=== PATIENT | male | born 1990 | race Caucasian/White ===

== ENCOUNTER 2022-11-01 18:02 | Emergency (ER) | payer SELFPAY ==
[~2022-11-01] VITALS: Ht 188 cm; Wt 97.5 kg
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
[2022-11-01] MEDS ORDERED: FENTANYL PF 100MCG/2ML AMPUL ONE (18:26)
[2022-11-01] MEDS ORDERED: KETOROLAC TROMETHAMINE INJ 30 MG/ML VIAL ONE (18:26)
[2022-11-01] MEDS ORDERED: FENTANYL PF 100MCG/2ML AMPUL IM ONE (18:30)
[2022-11-01] MEDS ORDERED: KETOROLAC TROMETHAMINE INJ 30 MG/ML VIAL IM ONE (18:30)
--- NOTE | 2022-11-01 18:45 | NUR ---
medicated as order
[2022-11-01] MEDS ORDERED: KETO10TA2 PO (19:22)
[2022-11-01] MEDS ORDERED: HYDR-3980 PO (19:22)
[2022-11-01] MEDS ORDERED: HYDROCODONE/APAP 10/325MG TABLET ONE (19:45)
[2022-11-01] MEDS ORDERED: HYDROCODONE/APAP 10/325MG TABLET PO ONE (20:00)
--- NOTE | 2022-11-01 20:48 | NUR ---
Patient discharged to home in stable condition. Written and verbal after care instructions given. Patient verbalizes understanding of instruction.
[2022-11-01 20:49] VITALS: BP 130/73
== END 2022-11-01 20:50 | disposition home or self-care (01) ==
LOC: ER 18:38
DX: S22.41XA Multiple fractures of ribs, right side, initial encounter for closed fracture (principal); S43.101A Unspecified dislocation of right acromioclavicular joint, initial encounter; Z60.2 Problems related to living alone; V00.831A Fall from motorized mobility scooter, initial encounter; Y93.89 Activity, other specified; Y92.89 Other specified places as the place of occurrence of the external cause; Y99.8 Other external cause status
CPT/HCPCS: 99284; 96372 ×2; 71100; 73030; J3010; J1885